=== PATIENT | male | born 1955 | race Caucasian/White ===

== ENCOUNTER 2018-12-21 16:10 | Inpatient (IN) | payer BC ==
[~2018-12-21] VITALS: Ht 188 cm; Wt 94.2 kg
[2018-12-21 16:59] LABS: BASOPHILS ABSOLUTE AUTO 0.05 K/mm3 (0.00-0.23); BASOPHILS PERCENT AUTO 1 % (0-2); EOSINOPHILS ABSOLUTE AUTO 0.23 K/mm3 (0.00-0.68); EOSINOPHILS PERCENT AUTO 3 % (0-6); Hematocrit 43.7 % (37.0-53.0); Hemoglobin 14.6 g/dL (13.5-17.5); IMMATURE GRAN ABSOLUTE AUTO 0.01 K/mm3 (0.00-0.10); IMMATURE GRAN PERCENT AUTO 0 % (0-1); LYMPHOCYTES ABSOLUTE AUTO 1.58 K/mm3 (0.84-5.20); LYMPHOCYTES PERCENT AUTO 23 % (21-46); MONOCYTES PERCENT AUTO 15 % (4-13); Mean Corpuscular HGB 29.3 pg (26.0-34.0); Mean Corpuscular HGB Conc 33.4 g/dL (31.5-36.5); Mean Corpuscular Volume 88 fL (80-100); Mean Platelet Volume 10.7 fL (9.1-12.4); NEUTROPHILS ABSOLUTE AUTO 3.92 K/mm3 (1.96-9.15); NEUTROPHILS PERCENT AUTO 58 % (41-73); Platelet Count 165 K/mm3 (150-400); RDW Coefficient Variation 13.2 % (11.7-14.2); RDW Standard Deviation 42.5 fL (35.1-46.3); Red Blood Cell Count 4.99 M/mm3 (4.30-5.90); White Blood Cell Count 6.79 K/mm3 (4.00-11.30)
[2018-12-21 17:24] LABS: Alanine Aminotransfer (ALT/SGP 21 U/L (12-78); Albumin/Globulin Ratio 1.1 (0.8-1.8); Alk Phos 71 U/L (50-136); Anion Gap 5 mmol/L (6-16); Aspartate Aminotrans (AST/SGOT 17 U/L (12-37); Bilirubin, Total 0.8 mg/dL (0.1-1.0); Blood Urea Nitrogen 19 mg/dL (8-24); Bun/Creatinine Ratio 20.6 (12.0-20.0); CO2, Blood 26 mmol/L (21-32); Calcium, Blood 8.5 mg/dL (8.5-10.1); Chloride, Blood 106 mmol/L (98-108); Creatinine, Blood 0.92 mg/dL (0.60-1.20); Globulin, Blood 3.6 g/dL (2.2-4.0); Glomerular Filtration Rate >60 (60-); Glucose, Blood 90 mg/dL (70-99); Potassium, Blood 3.6 mmol/L (3.5-5.5); Sodium, Blood 137 mmol/L (136-145); Total Protein, Blood 7.6 g/dL (6.4-8.2)
[2018-12-21] MEDS ORDERED: LOSA25 PO (19:01)
[2018-12-21] MEDS ORDERED: SILD25T PO (19:01)
[2018-12-21] MEDS ORDERED: TRAZ100 PO (19:01)
[2018-12-21] MEDS ORDERED: Dyazide 37.5-21 EACH PO (19:02)
[2018-12-21] MEDS ORDERED: Budeprion Xl300 MG PO (19:02)
[2018-12-21] MEDS ORDERED: PARO20 PO (19:03)
[2018-12-21 20:07] LABS: International Normalized Ratio 1.03; Prothrombin Time Results 10.9 Sec (9.7-11.5)
--- NOTE | 2018-12-22 03:18 | NUR ---
Admission/[place] of Care: Patient arrived to unit at 0210hr via stretcher, accompanied by ED staff. Stood and transferred to ICU bed without difficulty. Alert and oriented x4. At rest, denies pain, discomfort, SOB, or dyspnea. C/o chest pain 6-7/10 only when taking deep breath, this has been present for 2 days. VSS, o2-95% on RA. Heart rhythm shows sinus cullen-NSR 59-61, with occasional PVC's. Bilateral peripheral IV's patent and intact. NS infusing at 150ml/hr, x1L only. Heparin gtt infusing at 13u/kg/hr, dosed at 100kg, confirmed with EMAR order, next PTT at 0600hr. Call light in reach, makes needs known. Instructed to not get out of bed without assistance. Will continue to monitor for pain, comfort, safety.
[2018-12-22 06:31] LABS: BASOPHILS ABSOLUTE AUTO 0.07 K/mm3 (0.00-0.23); BASOPHILS PERCENT AUTO 1 % (0-2); EOSINOPHILS ABSOLUTE AUTO 0.25 K/mm3 (0.00-0.68); EOSINOPHILS PERCENT AUTO 4 % (0-6); Hematocrit 41.4 % (37.0-53.0); IMMATURE GRAN ABSOLUTE AUTO 0.03 K/mm3 (0.00-0.10); IMMATURE GRAN PERCENT AUTO 1 % (0-1); LYMPHOCYTES ABSOLUTE AUTO 1.73 K/mm3 (0.84-5.20); LYMPHOCYTES PERCENT AUTO 27 % (21-46); MONOCYTES ABSOLUTE AUTO 0.97 K/mm3 (0.16-1.47); MONOCYTES PERCENT AUTO 15 % (4-13); Mean Corpuscular HGB 29.5 pg (26.0-34.0); Mean Corpuscular HGB Conc 33.8 g/dL (31.5-36.5); Mean Corpuscular Volume 87 fL (80-100); Mean Platelet Volume 10.6 fL (9.1-12.4); NEUTROPHILS ABSOLUTE AUTO 3.46 K/mm3 (1.96-9.15); NEUTROPHILS PERCENT AUTO 53 % (41-73); Platelet Count 155 K/mm3 (150-400); RDW Coefficient Variation 13.2 % (11.7-14.2); RDW Standard Deviation 42.5 fL (35.1-46.3); Red Blood Cell Count 4.74 M/mm3 (4.30-5.90); White Blood Cell Count 6.51 K/mm3 (4.00-11.30)
[2018-12-22 06:35] LABS: Anion Gap 6 mmol/L (6-16); Blood Urea Nitrogen 12 mg/dL (8-24); Bun/Creatinine Ratio 16.8 (12.0-20.0); CHOL/HDL RATIO 3.6; CO2, Blood 26 mmol/L (21-32); Calcium, Blood 7.9 mg/dL (8.5-10.1); Chloride, Blood 108 mmol/L (98-108); Cholesterol 140 mg/dL (50-200); Creatinine, Blood 0.71 mg/dL (0.60-1.20); Glomerular Filtration Rate >60 (60-); Glucose, Blood 95 mg/dL (70-99); HDL Cholesterol 39 mg/dL (>39); LDL/HDL RATIO 2.3; Low Density Lipoprotein Chol 90 mg/dL (0-110); Potassium, Blood 3.4 mmol/L (3.5-5.5); Sodium, Blood 140 mmol/L (136-145); Triglycerides 56 mg/dL (30-160); Very Low Density Lipoprot Chol 11 mg/dL (6-32)
--- NOTE | 2018-12-22 06:37 | NUR ---
Shift Summary: Patient slept well throughout remainder of shift. Continues to c/o chest pain upon deep inhalation, otherwise denies pain, discomfort, SOB, or dyspnea. VSS, o2-94-98% on RA. Peripheral IV's remain patent and intact. Heparin gtt continues to infuse at 13u/kg/hr, no changes made following 0600hr PTT, next PTT scheduled for 1200hr. Voided using urinal at bedside without difficulty. Call light in reach, makes needs known. Will continue to monitor until report to day shift RN.
--- NOTE | 2018-12-22 07:26 | NUR ---
Recieved report from Murray WATERMAN. patient was awake when entering rom and was able to communicate his needs. He is on Ra and sats in the upper 90%'s. is at bedside. He denies any current needs or chest pain or any other kind of pain. He is assist with getting up r/t line and tubes. He is SB 50-60 with occassional pvc's and systolic 140's with MAP >65. He is currently resting awaiting cardiology consult.
--- NOTE | 2018-12-22 10:04 | NUR ---
Dr Steward in room with patient talking about possible cath. Echo done and she was updated on results. He is in room with .
--- NOTE | 2018-12-22 12:14 | NUR ---
laboratory veterinarian here picking up patient.
--- NOTE | 2018-12-22 13:42 | NUR ---
Patient returned from dental lab technician with TR band 10cc in theband and will remove in 2 hours. Heparin off
--- NOTE | 2018-12-22 14:16 | NUR ---
Patient resting and awaiting removal of TR Band. Dr going to change some BP meds to keep below 125 systolic. Right TR site C/D/I and no hematoma or bleeding. at bedside.
--- NOTE | 2018-12-22 15:44 | NUR ---
Tried to take 2cc of air from band and hestarted to bleed right away. reapplied pressure and bleeding stopped and no hematoma. Patient up in chair at bedside watching TV. Started NS infusion. heparin gtt stopped and SQ started.
--- NOTE | 2018-12-22 15:48 | NUR ---
Patient awakened to take meds. CBG are all under coverage. He transfered back to bed after he was falling asleep on bedside table. He has some c/o foot tingling and he was given scheduled Gabepentin.
--- NOTE | 2018-12-22 18:01 | NUR ---
Tried for third time to release air from TR band and started to bleed with just 2 cc of air removed. He remains up in chair and at bedside. VSS and denies any pain.
--- NOTE | 2018-12-22 19:27 | NUR ---
START OF SHIFT: REPORT FROM KELSEA WATERMAN. PT SITTING IN CHAIR WATCHING TV. A+O X4, PLEASANT, VSS. R RADIAL WITH TR BAND IN PLACE ASSESSED BY BOTH RN'S AND REPORTED TO HAVE APPRX 11cc REMAINING D/T CONTINUAL LEAKING FROM INSERTION SITE. LAST AIR INSTILL APPRX 30 MINUTES PRIOR TO SHIFT CHANGE ACCORDING TO KELSEA WATERMAN. NO FURTHER LEAKING NOTED DURING ASSESSMENT PER KELSEA WATERMAN. WILL CONTINUE TO MONITOR AND ASSESS AIR RELEASED NATURALLY FROM TR BAND.
--- NOTE | 2018-12-23 02:08 | NUR ---
TR BAND: REMAINS IN PLACE. ASSESSED EACH TIME RN ON ROOM AND REMAINS UNCHANGED FROM INTIAL ASSESMENT. IN ADDITION TO THE NATURAL RELEASE OF AIR, 2cc REMOVED AT 0000. TR BAND AND ARM BOARD REMAIN IN PLACE WHILE PT SLEEPING.
--- NOTE | 2018-12-23 04:14 | NUR ---
PT AWAKENED EASILY TO RN AND ELECTRIC MELT OPERATOR AT BEDSIDE. PT A+O, VSS. TR BAND WITH 2cc REMOVED-SITE REMAINS UNCHANGED FROM INITIAL ASSESSMENT. PT UP TO RESTROOM INDEPENDENTLY AND WITHOUT DIFFICULTY IN ROOM. CALL LIGHT WITHING REACH. PT GIVEN TWO FRESH PILLOWS PER PT REQUEST.
[2018-12-23 04:15] LABS: BASOPHILS ABSOLUTE AUTO 0.06 K/mm3 (0.00-0.23); BASOPHILS PERCENT AUTO 1 % (0-2); EOSINOPHILS ABSOLUTE AUTO 0.25 K/mm3 (0.00-0.68); EOSINOPHILS PERCENT AUTO 4 % (0-6); Hematocrit 43.1 % (37.0-53.0); Hemoglobin 14.1 g/dL (13.5-17.5); IMMATURE GRAN ABSOLUTE AUTO 0.02 K/mm3 (0.00-0.10); IMMATURE GRAN PERCENT AUTO 0 % (0-1); LYMPHOCYTES ABSOLUTE AUTO 1.86 K/mm3 (0.84-5.20); LYMPHOCYTES PERCENT AUTO 28 % (21-46); MONOCYTES ABSOLUTE AUTO 0.89 K/mm3 (0.16-1.47); MONOCYTES PERCENT AUTO 14 % (4-13); Mean Corpuscular HGB 28.7 pg (26.0-34.0); Mean Corpuscular HGB Conc 32.7 g/dL (31.5-36.5); Mean Corpuscular Volume 88 fL (80-100); Mean Platelet Volume 10.1 fL (9.1-12.4); NEUTROPHILS ABSOLUTE AUTO 3.52 K/mm3 (1.96-9.15); NEUTROPHILS PERCENT AUTO 53 % (41-73); Platelet Count 157 K/mm3 (150-400); RDW Coefficient Variation 13.2 % (11.7-14.2); RDW Standard Deviation 42.4 fL (35.1-46.3); Red Blood Cell Count 4.91 M/mm3 (4.30-5.90)
[2018-12-23 04:32] LABS: Albumin, Blood 3.4 g/dL (3.4-5.0); Anion Gap 3 mmol/L (6-16); Blood Urea Nitrogen 11 mg/dL (8-24); Bun/Creatinine Ratio 12.1 (12.0-20.0); CO2, Blood 30 mmol/L (21-32); Calcium, Blood 8.2 mg/dL (8.5-10.1); Chloride, Blood 107 mmol/L (98-108); Creatinine, Blood 0.91 mg/dL (0.60-1.20); Glomerular Filtration Rate >60 (60-); Glucose, Blood 94 mg/dL (70-99); Potassium, Blood 3.7 mmol/L (3.5-5.5); Sodium, Blood 140 mmol/L (136-145)
--- NOTE | 2018-12-23 06:25 | NUR ---
SHIFT SUMMARY: PT RESTED T/O NOC WITHOUT C/O PAIN, SOB, OR ANY OTHER DISCOMFORTS. R RADIAL SITE WITHOUT CHANGE OR DRAINAGE T/O NOC. TR BAND REMAINING IN PLACE WHILE PT ASLEEP. WILL INFORM ONCOMING RN.
--- NOTE | 2018-12-23 06:53 | NUR ---
TR BAND: LAST REMAINING 5cc AIR OUT AT 0640. SITE REMAINS WITHOUT DRAINAGE THUS FAR. REPORT TO KELSEA WATERMAN. TRUPTI DRESSING IN ROOM. KELSEA WATERMAN STATED WILL REMOVE TR BAND AND PLACE DRESSING.
--- NOTE | 2018-12-23 07:07 | NUR ---
Recieved report from Maribeth WATERMAN, right TR band site C/D/I and all air out for 15 minutes and will wait an hour before applting dressing. No sign of bleeding or hematoma. He is alert and aoriented and is able to communicate his needs. Dr Ames in room going over post discharge treatment plan. He is sitting up in bed listening. not present. He is on RA and sats mid to upper 90%'s. He has 18ga LAC dressing intact and site WNL's and flushed and SL'd. He also has 20ga IV RAC dressing intact and site WNL's and flushed and SL. He is up to BRP and is independent in room.
[2018-12-23] MEDS ORDERED: ASPI81CH PO (11:21)
[2018-12-23] MEDS ORDERED: ATOR40TA PO (11:22)
[2018-12-23] MEDS ORDERED: CLOP75 PO (11:23)
[2018-12-23] MEDS ORDERED: CARV6.25 PO (11:23)
[2018-12-23] MEDS ORDERED: ENTRESTO 24 MG1 EACH PO (11:23)
--- NOTE | 2018-12-23 11:58 | NUR ---
Dr Ames saw patient and had dietary see patient. After they left Dr Yao gave and discharged patient. I had pharmacy come and review all new meds with patient for side affects. They were given written discharge instructions and reviewed as well as education on radial access, sleep apnea, and NSTEMI. Called in meds to local [facility] after verifying there insurance was good there. They returned understanding of all information. I gave physical education if re bleed of radial site. Pulled IV intact and wrapped in coban. Patient ambulated to exit and went back on vacation POV.
== END 2018-12-23 12:00 | disposition home or self-care (01) | DRG 280 ==
LOC: ER 16:10 → ERHOLD 22:45 → ICUW 22:45 → ERHOLD 12-22 02:10 → ICUW 12-22 14:15 → ERHOLD 12-22 14:15 → ER 12-22 14:15 → ICUW 12-22 14:30 → MEDS 12-22 22:36 → ICUW 12-22 22:48 → MEDS 12-22 22:48 → ICUW 12-22 22:48
PROVIDERS: Emergency Medicine; Family Medicine; Internal Medicine Cardiovascular Disease; Physician Assistant; ADMIT Hospitalist
PROC: 4A023N7 Measurement of Cardiac Sampling and Pressure, Left Heart, Percutaneous Approach (ICD-10-PCS; principal; 2018-12-22)
PROC: B211YZZ Fluoroscopy of Multiple Coronary Arteries using Other Contrast (ICD-10-PCS; 2018-12-22)
DX: I21.4 Non-ST elevation (NSTEMI) myocardial infarction (principal); I50.21 Acute systolic (congestive) heart failure; I25.10 Atherosclerotic heart disease of native coronary artery without angina pectoris; I11.0 Hypertensive heart disease with heart failure; I27.20 Pulmonary hypertension, unspecified; E87.6 Hypokalemia; G47.30 Sleep apnea, unspecified; F32.9 Major depressive disorder, single episode, unspecified; N52.9 Male erectile dysfunction, unspecified; E66.3 Overweight; Z68.26 Body mass index [BMI] 26.0-26.9, adult
CPT/HCPCS: 36415; 71260; 80048; 80053; 80061; 80069; 83036; 84439; 84443; 84484; 85025; 85379; 85610; 85730; 93005; 93010; 93306; 93458; 96374; 99152; 99153; 99285-25; A9270; C1769; C1894; G0480; J1644; J1940; J2250; J3010; J7030; J7040; Q9967